=== PATIENT | female | born 1950 | race Caucasian/White ===

== ENCOUNTER 2020-03-15 10:48 | Observation (INO) | payer MEDICARE, OTHER ==
[~2020-03-15] VITALS: Ht 162.6 cm; Wt 80.3 kg
--- NOTE | 2020-03-15 11:24 | NUR ---
PT TO ROOM WITH STEADY GAIT
[2020-03-15 12:38] LABS: HEMATOCRIT 42.7 % (37.0-47.0); HEMOGLOBIN 13.9 g/dl (12.0-16.0); IMMATURE GRANULOCYTES 0.5 % (0.0-5.0); MEAN CELL VOLUME 90.3 fL CALC (80.0-100.0); MEAN CORPUSCULAR HGB 29.4 pG CALC (26.0-32.0); MEAN CORPUSCULAR HGB CONC 32.6 g/dL CAL (32.0-36.0); NEUT# 6.56 thou/uL (2.00-7.15); RED BLOOD COUNT 4.73 mill/uL (4.20-5.60); RED CELL DISTRI WIDTH 13.2 % (11.5-15.5)
--- NOTE | 2020-03-15 12:50 | NUR ---
PT UP TO BATHROOM WITHOUT DIFFICULTY. IV MEDS INFUSING. STABLE ON MONITOR. NO DISTRESS NOTED AT THIS TIME.
[2020-03-15 12:51] LABS: ALBUMIN 4.1 g/dL (3.2-5.0); ALKALINE PHOSPHATASE 70 u/l (38-126); AMYLASE 49 u/l (30-110); ANION GAP 18 (6-22 (CALC)); BILIRUBIN, TOTAL 0.6 mg/dL (0.0-1.4); BUN 15 mg/dL (8-23); BUN/CREATININE RATIO 18 (12-20 (CALC)); CARBON DIOXIDE 21 mmol/l (22-30); CHLORIDE 100 mmol/l (95-108); CREATININE 0.9 mg/dL (0.5-1.0); GFR > 60 ML/MIN (>=60 (CALC)); GFR FOR AFR.AMER. > 60 ML/MIN (>=60 (CALC)); LIPASE 77 u/l (23-300); POTASSIUM 4.9 mmol/l (3.5-5.1); SGOT/AST 30 u/l (9-36); SODIUM 134 mmol/l (137-146); TOTAL PROTEIN 7.6 g/dL (6.3-8.2)
[2020-03-15] MEDS ORDERED: METOPROL TAR25 MG PO (12:56)
[2020-03-15] MEDS ORDERED: LISINOPRIL20 MG PO (12:56)
[2020-03-15] MEDS ORDERED: SYNTHROID100 MCG PO (12:56)
[2020-03-15 13:08] LABS: D-DIMER 1.98 mg/L (0.19-0.60)
[2020-03-15 13:12] LABS: ACT PARTIAL THROMBO TIME 25.2 SECONDS (20.0-32.5); PROTHROMBIN TIME 10.3 SECONDS (9.0-12.5)
[2020-03-15 13:22] LABS: TSH, 3RD GENERATION 0.62 uIU/mL (0.47 - 4.68)
--- NOTE | 2020-03-15 13:45 | NUR ---
PT TO RADIOLOGY.
--- NOTE | 2020-03-15 14:30 | NUR ---
PT STABLE ON MONITOR. IV MEDS INFUSING WITHOUT COMPLICATIONS.
[2020-03-15 15:38] LABS: C. DIFFICILE TOXIN A&B NEGATIVE (NEGATIVE)
--- NOTE | 2020-03-15 15:50 | NUR ---
PT IN NO DISTRESS. CALL LIGHT WITHIN REACH. BED IN LOW POSITION.
--- NOTE | 2020-03-15 16:15 | NUR ---
REPORT GIVEN TO DEANNA GALLEGOS.
[2020-03-15 17:00] VITALS: BP 147/71
--- NOTE | 2020-03-15 19:15 | NUR ---
RECEIVED REPORT FROM EL, PT RESTING IN BED IN SEMI-RAMOS, NO S/SX OF DISTRESS OBSERVED AT THIS TIME, PT DENIES ANY PAIN, NO OTHER NEEDS OR CONCERNS EXPRESSED AT THIS TIME. WILL CONTINUE TO MONITOR.
[2020-03-15 19:51] VITALS: BP 121/53
[2020-03-15 23:45] VITALS: BP 123/73
--- NOTE | 2020-03-16 00:36 | NUR ---
PT RESTING IN BED, NO S/S OF DISTRESS AT THIS TIME. SAFETY PRECAUTIONS IN PLACE.
--- NOTE | 2020-03-16 04:19 | NUR ---
PT RESTING IN BED, NO S/S OF DISTRESS AT THIS TIME. SAFETY PRECAUTIONS IN PLACE.
[2020-03-16 05:00] VITALS: BP 129/78
[2020-03-16 07:30] VITALS: BP 128/60
--- NOTE | 2020-03-16 08:40 | NUR ---
PATIENT IN BED RESTING COMOFORTABLY DENIES ANY SHORTNESS OF BREATH. DENIES PAIN AT THIS TIME. ALL SAFETY MEASURES ARE IN PLACE CALL LIGHT NEAR.
[2020-03-16 10:55] VITALS: BP 148/75
--- NOTE | 2020-03-16 11:22 | NUR ---
PATIENT IN BED STATES NO SHORTNESS OF BREATH AT THIS TIME CALL LIGHT WITHIN REACH. SIDERAIL UP X 2. NEW IV START DONE #20 LAC. PATIENT TOLERATED PROCEEDURE WITHOUT PROBLEMS.
[2020-03-16] MEDS ORDERED: DEXAMETHASON6 MG PO (11:37)
[2020-03-16] MEDS ORDERED: ZITHROMAX250 MG PO (11:37)
--- NOTE | 2020-03-16 15:15 | NUR ---
PATIENT D/C AT THIS TIME AND D/C INSTRUCTIONS GONE OVER WITH PATIENT. PATIENT VERBALIZES ALL UNDERSTANDING OF D/C INSTRUCTIONS AT THIS TIME. PATIENT ADVISED IF ANY CHANGES WERE TO OCCUR TO SEEK MEDICAL ATTENTION TO [facility].
[2020-03-16 15:20] VITALS: BP 140/70
--- NOTE | 2020-03-16 16:00 | NUR ---
PATIENT IV REMOVED AT THIS TIME. PATIENT D/C TO GO HOME DENIES ANY NEEDS.
--- NOTE | 2020-03-16 16:43 | NUR ---
Discharge instructions given. Patient verbalizes understanding of same. Discharged in stable condition via Wheelchair to Home with family. All belongings sent with pt.
== END 2020-03-16 16:45 | disposition home or self-care (01) ==
LOC: ED 10:48 → ED-I 14:00 → ED 14:17 → ED-I 14:18 → MS2 14:18
PROVIDERS: ADMIT Internal Medicine; ATTEND Internal Medicine
DX: U07.1 COVID-19 (principal); J12.89 Other viral pneumonia; R19.7 Diarrhea, unspecified; R68.83 Chills (without fever); R43.9 Unspecified disturbances of smell and taste; R10.30 Lower abdominal pain, unspecified; I10 Essential (primary) hypertension; E03.9 Hypothyroidism, unspecified; F41.9 Anxiety disorder, unspecified; Z85.3 Personal history of malignant neoplasm of breast; Z90.11 Acquired absence of right breast and nipple
CPT/HCPCS: J1650